=== PATIENT | male | born 1980 ===

== ENCOUNTER 2019-06-09 13:04 | Emergency (ER) | payer OTHER ==
[2019-06-09 13:38] VITALS: BP 129/91
--- NOTE | 2019-06-09 14:26 | UC ---
Lower Extremity/Ankle HPI - HPI Summary HPI Summary: 39 yo male presents with RIGHT ankle/leg injury. He tells me that yesterday afternoon he was playing basketball and while pivoting at one point, he felt a pop and sharp immediate pain in the back of his right ankle. Since that time has been unable to ambulate or weight bear. He is unable to dorsiflex without significant pain. Has been elevating and applying ice with mild relief. Significant swelling to the area. Denies numbness or tingling. - History of Current Complaint Chief Complaint: UCLowerExtremity Stated Complaint: ANKLE INJURY Time Seen by Provider: 06/09/19 14:26 Hx Obtained From: Patient Onset/Duration: Sudden Onset Severity Initially: Moderate Severity Currently: Moderate Pain Intensity: 8 Pain Scale Used: 0-10 Numeric Able to Bear Weight: No - Allergies/Home Medications Allergies/Adverse Reactions: Allergies Allergy/AdvReac Type Severity Reaction Status Date / Time No Known Allergies Allergy Verified 06/09/19 13:39 Home Medications: Home Medications Diclofenac 1% GEL (NF) [Voltaren 1% GEL (NF)] 1 applic SUBDERMAL DAILY WITH MEAL 06/09/19 [History Confirmed 06/09/19] PMH/Surg Hx/FS Hx/Imm Hx - Additional Past Medical History Additional PMH: None - Surgical History Surgical History: None - Family History Known Family History: Positive: Non-Contributory - Social History Lives: With Family Alcohol Use: None Substance Use Type: None Smoking Status (MU): Never Smoked Tobacco Review of Systems All Other Systems Reviewed And Are Negative: No Constitutional: Positive: Negative Skin: Positive: Negative Respiratory: Positive: Negative Cardiovascular: Positive: Negative Neurovascular: Positive: Negative Musculoskeletal: Positive: Other: - Right ankle injury Neurological: Positive: Negative Psychological: Positive: Negative Physical Exam - Summary Physical Exam Summary: GENERAL: NAD. WDWN. No pain distress. SKIN: No rashes, sores, lesions, or open wounds. CHEST: No accessory muscle use. Breathing comfortably and in no distress. CV: Pulses intact PT and DP. Cap refill <2seconds MSK: RIGHT ANKLE: Moderate edema at achilles with significant TTP. Unable to dorsiflex. Cool test positive. NTTP lateral or medial malleoli. No ecchymosis. No palpable bulging. NEURO: Alert. Sensations intact and symmetric B/L LEs PSYCH: Age appropriate behavior. Triage Information Reviewed: Yes Vital Signs: Initial Vital Signs Temp 98.1 F 06/09/19 13:35 Pulse 80 06/09/19 13:35 Resp 18 06/09/19 13:35 BP 129/91 06/09/19 13:35 Pulse Ox 96 06/09/19 13:35 Vital Signs Reviewed: Yes Diagnostics - Radiology Ankle Radiology Interpretation Completed By: Radiologist Summary of Radiographic Findings: IMPRESSION: NO ACUTE OSSEOUS INJURY. IF SYMPTOMS PERSIST, RECOMMEND REPEAT IMAGING. Lower Extremity Course/Dx - Course Course Of Treatment: XR neg. High suspicion for achilles tear/rupture. I called Orthopedics and Dr. Bonilla is able to see the pt now. Pt was placed in a CAM boot and provided with crutches. Discussed with pt and he will go to Ortho now for further eval - Differential Dx/Diagnosis Provider Diagnosis: Achilles tendon injury Discharge ED - Sign-Out/Discharge Documenting (check all that apply): Patient Departure All imaging exams completed and their final reports reviewed: Yes - Discharge Plan Condition: Stable Disposition: HOME Patient Education Materials: Achilles Tendon Rupture (ED), Achilles Tendinitis (ED), Achilles Tendon Repair (DC) Referrals: No Primary Care Phys,NOPCP [Primary Care Provider] - Moi Skaggs MD [Medical Doctor] - As Soon As Possible Additional Instructions: If you develop a fever, shortness of breath, chest pain, new or worsening symptoms - please call your PCP or go to the ED immediately. Dr. Skaggs will see you now - Billing Disposition and Condition Condition: STABLE Disposition: Home
== END 2019-06-09 14:45 | disposition home or self-care (01) ==
LOC: UCEAST 13:04
DX: S86.001A Unspecified injury of right Achilles tendon, initial encounter (principal); X50.9XXA Other and unspecified overexertion or strenuous movements or postures, initial encounter; Y93.67 Activity, basketball; Y92.310 Basketball court as the place of occurrence of the external cause; Y99.8 Other external cause status
CPT/HCPCS: 99203; G0463

== ENCOUNTER → 2019-06-12 10:06 | Day surgery (SDC) | payer OTHER ==
[~2019-06-12 10:06] MED LIST: Buffered Lidocaine 1% SYRIN* 1 ML/SYRINGE INTRADERM ONE; Bupivacaine 0.5%* 50 ML MDV VIAL ONE; Chloroprocaine 2%* 20 ML VIAL ONE; Lactated Ringers 1000 ML Bag* 1,000 ML IV SCH; Midazolam* 1 MG/ML 5 ML VIAL (5 MG) ONE; Naloxone* 0.4 MG/ML 1 ML VIAL IV PRN; Ondansetron INJ* 2 MG/ML VIAL IV PRN; Sodium Citrate/Citric Acid* 15 ML UDC ONE; Sodium Citrate/Citric Acid* 15 ML UDC PO ONE; ceFAZolin 2 GM PREMIX in ORs 2 GM/50 ML BAG ONE; fentaNYL* 50 MCG/ML 2 ML VIAL (100 MCG VIAL) IV PRN; oxyCODONE TAB* 5 MG TAB ONE
--- NOTE | 2019-06-12 13:53 | OP ---
Operative Report - Blank - Operative Report Date of Operation: 06/12/19 Note: PATIENT: Jeffry Colón DATE OF : 1980 DATE OF SURGERY: 06/12/2019 SURGEON: Moi Skaggs MD WEB SERVICES MANAGER: FRED [place], whos assistance was necessary for positioning, retraction, help with instrumentation, and closure. ANESTHESIOLOGIST: Dr. Avila PREOPERATIVE DIAGNOSIS: Right Achilles tendon rupture POSTOPERATIVE DIAGNOSIS: Right Achilles tendon rupture OPERATION: Right Achilles tendon repair ANESTHESIA: Spinal IMPLANTS: none TOURNIQUET TIME: Less than 60 minutes with a well-padded thigh tourniquet at 250mmHg SPECIMENS: none ESTIMATED BLOOD LOSS: minimal COMPLICATIONS: none STATUS: Stable from the operating room to the recovery room and then home. INDICATIONS FOR PROCEDURE: Jeffry sustained an Achilles tendon rupture. Both operative and non operative treatment alternatives were reviewed. Further, the nature and risks of surgery were reviewed in careful detail in the office as well as in the preoperative holding area. Our discussions regarding the risks of surgery included, but were not limited to, infection, wound problems, nerve injury, neuroma, RSD, persistent symptoms, blood clot, re-rupture or failure to heal, failure of the surgery, and even the remote chance of catastrophic complication, including loss of limb. DESCRIPTION OF PROCEDURE: The patient was seen in the preoperative holding unit and informed written consent was obtained. The appropriate extremity was marked. The patient was then brought to the operating room and carefully positioned on the operating room table. Anesthesia was induced. All bony prominences were padded with great care. A well-padded thigh tourniquet was placed. A chlorhexidine based pre- scrub was performed followed by a chloraprep prep and drape in standard sterile fashion. A surgical safety pause was then conducted in which we confirmed the appropriate patient, extremity, planned procedure, availability of equipment, indication and administration of prophylactic antibiotics, and DVT prophylaxis in the form of a compression boot on the non-surgical extremity. An Esmarch exsanguination of the extremity was performed and the tourniquet was inflated. I then began by making a 3 cm incision slightly posteromedial overlying the Achilles tendon. I carried the dissection down through the soft tissue and exposed the peritenon. I then came through this sharply in line with the Achilles. I exposed the Achilles tendon, which was completely ruptured. We irrigated out hematoma. At this point, I utilized an Allis clamp to pull the proximal segment distally and passed a malleable between the tendon and the peritenon posteriorly. This mobilized the proximal segment back to its proper location. I then passed a bent ringed forceps within the peritenon around the tendon proximally. We used a Hira needle to pass #2 Fiberwire through the skin and then through the forceps, Achilles, and then through the other side. By pulling the forceps back out of the wound, we brought the suture out through the wound having been passed through the tendon. We repeated this two additional times, moving approximately 1 cm distally through the proximal segment. We similarly used the bent forceps to pass 3 strands of #2 Fiberwire through the distal segment. These sutures all had excellent purchase on the tendon. At this point, we placed a bump underneath the dorsum of the left foot to plantarflex the ankle. We then tied the sutures together, positioning the knot away from the skin edges. This nicely reapproximated the tendon ends with resting tension of the Achilles similar to the contralateral extremity, which had been assessed prior to prepping and draping. There was a restored Cool test. We then irrigated copiously. We closed in layers meticulously utilizing 3-0 Monocryl for the peritenon layer, 3-0 Monocryl for the subdermal layer, and 3-0 nylon for the skin. A sterile dressing was then applied followed by a splint with the ankle in resting equinus position. The patient was then awakened from anesthesia and transferred to the recovery room in stable condition. There were no complications. All needle and sponge counts were correct at the end of the case. ATTESTATION: I attest I was present and scrubbed and performed the critical portions of the procedure myself. POSTOPERATIVE PLAN: The patient will remain [id number] for two weeks and follow up in two weeks for likely suture removal and Steri-Strip application. We will then progress via my postoperative protocol.
[2019-06-12 14:51] VITALS: BP 119/76
== END | disposition home or self-care (01) ==
LOC: OR 10:06
PROVIDERS: ATTEND Orthopaedic Surgery
DX: M66.371 Spontaneous rupture of flexor tendons, right ankle and foot (principal)
CPT/HCPCS: A9270-GY; J0690; J2250; J2400; J3490